=== PATIENT | female | born 1950 | race Caucasian/White ===

== ENCOUNTER 2022-08-08 09:23 | Outpatient (CLI) | payer OTHER, MEDICARE ==
[~2022-08-08 09:23] MED LIST: MULT PO; PRO40 PO
== END 2022-08-08 21:12 | disposition home or self-care (01) ==
LOC: SCA 09:23
PROVIDERS: ATTEND Internal Medicine Cardiovascular Disease
DX: I08.0 Rheumatic disorders of both mitral and aortic valves (principal); I11.9 Hypertensive heart disease without heart failure; I42.1 Obstructive hypertrophic cardiomyopathy
CPT/HCPCS: 93306

== ENCOUNTER 2022-08-14 10:19 | Emergency (ER) | payer OTHER, MEDICARE ==
[~2022-08-14] VITALS: Ht 157.5 cm; Wt 54.4 kg
[2022-08-14 10:25] VITALS: BP_SYST 133
--- NOTE | 2022-08-14 10:35 | NUR ---
Pt placed to ER bed 02, to gown, to placing judge. Report given to DOMO Crowe.
--- NOTE | 2022-08-14 10:40 | NUR ---
Patient arrived to ed bed 2 for c/o cough, shortness of breath, and heart palpitations. Patient said that the onset started 6 weeks ago. Patient was diagnosed with COVID six weeks ago. Patient retested and was negative. Patient denies having DM at the moment, high cholesterol, diagnosed with GERD and diverticulitis. Patient is alert and oriented x4. Ambulatory. Patient respiration even and unlabored. No c/o pain at the moment. Will continue to monitor.
--- NOTE | 2022-08-14 11:09 | NUR ---
Patient says she has sinus infection last week but "feels better now."
[2022-08-14] MEDS ORDERED: BENZ100C92 PO (11:10)
[2022-08-14] MEDS ORDERED: MED4 PO (11:10)
--- NOTE | 2022-08-14 11:20 | NUR ---
Patient given written and verbal discharge instructions and verbalizes understanding. ER MD discussed with patient the results and treatment provided. Patient in stable condition. ID arm band removed. Opportunity for questions provided and answered. Medication side effect fact sheet provided.
[2022-08-14 12:05] VITALS: BP_SYST 224
== END 2022-08-14 12:05 | disposition home or self-care (01) ==
LOC: SED 10:19
DX: J45.909 Unspecified asthma, uncomplicated (principal); R05.9 Cough, unspecified; R06.02 Shortness of breath; Z88.1 Allergy status to other antibiotic agents; Z79.899 Other long term (current) drug therapy
CPT/HCPCS: 71045; 99283

== ENCOUNTER 2024-06-25 10:18 | Outpatient (CLI) | payer OTHER, MEDICARE ==
[~2024-06-25 10:18] MED LIST changes: +BENZ100C92 PO; +HYDR-3927 PO; +IBUP-1969 PO; +MED4 PO
== END 2024-06-25 18:03 | disposition home or self-care (01) ==
LOC: SCT 10:18
PROVIDERS: ATTEND Student in an Organized Health Care Education/Training Program
DX: M16.12 Unilateral primary osteoarthritis, left hip (principal)

== ENCOUNTER 2024-07-08 08:00 | Outpatient (CLI) | payer OTHER, MEDICARE ==
[2024-07-08 12:51] LABS: BASOPHILS # (AUTO) 0.1 K/uL (0.0-0.2); BASOPHILS % (AUTO) 0.9 % (0.0-2.0); EOSINOPHILS # (AUTO) 0.1 K/uL (0.0-0.4); EOSINOPHILS % (AUTO) 2.3 % (0.0-4.0); HEMATOCRIT 39.2 % (36-48); HEMOGLOBIN 13.1 g/dL (12.0-16.0); LYMPHOCYTES # (AUTO) 1.7 K/uL (1.0-5.5); LYMPHOCYTES % (AUTO) 30.3 % (20.5-51.5); MEAN CORPUSCULAR HEMOGLOBIN 30 pg (27-31); MEAN CORPUSCULAR HGB CONC 34 % (32-36); MEAN CORPUSCULAR VOLUME 91 fL (79.0-98.0); MONOCYTES # (AUTO) 0.4 K/uL (0.0-1.0); MONOCYTES % (AUTO) 7.2 % (1.7-9.3); NEUTROPHILS # (AUTO) 3.3 K/uL (1.8-7.7); NEUTROPHILS % (AUTO) 59.3 % (40.0-70.0); PLATELET COUNT (AUTO) 183 K/uL (130-430); RED BLOOD CELL COUNT(AUTO) 4.32 MIL/uL (4.2-6.2); RED CELL DISTRIBUTION WIDTH 13.7 % (9.0-15.0); WHITE BLOOD COUNT (AUTO) 5.6 K/uL (4.8-10.8)
[2024-07-08 13:08] LABS: ALANINE AMINOTRANSFERASE 18 U/L (12-78); ALBUMIN 3.9 g/dL (3.4-4.8); ANION GAP 8 (5-15); ASPARTATE AMINOTRANSFERASE 19 U/L (10-37); CALCIUM 9.4 mg/dL (8.4-11.0); CARBON DIOXIDE 28 mmol/L (23-29); CHLORIDE 103 mmol/L (98-107); CREATININE 0.73 mg/dL (0.55-1.30); GLUCOSE 95 mg/dL (74-106); INR 0.9 (0.8-1.2); POTASSIUM 4.1 mmol/L (3.5-5.1); PROTHROMBIN TIME 9.9 SECS (9.5-12.5); SODIUM SERUM 139 mmol/L (136-145); TOTAL BILIRUBIN 0.6 mg/dL (0.0-1.0); TOTAL PROTEIN, SERUM 7.5 g/dL (6.4-8.3); UREA NITROGEN, BLOOD 15 mg/dL (8-21)
== END 2024-07-08 15:23 | disposition home or self-care (01) ==
LOC: SRD 08:00 → EDSTATUS 07-16 12:27
PROVIDERS: ATTEND Family Medicine
DX: Z01.818 Encounter for other preprocedural examination (principal); R07.9 Chest pain, unspecified; I70.0 Atherosclerosis of aorta; M16.12 Unilateral primary osteoarthritis, left hip
CPT/HCPCS: 36415; 71046; 80053; 83037; 85025; 85610; 85730; 87081